=== PATIENT | female | born 1955 | race Caucasian/White ===

== ENCOUNTER 2017-02-05 15:23 | Emergency (ER) | payer BC ==
--- NOTE | 2017-02-05 16:54 | UC ---
Lower Extremity/Ankle HPI - HPI Summary HPI Summary: Pt presnets with large hematoma on dorasal aspect of right foot. pt reports running through airport and carry on luggage fell on top of right foot. Pt then sat for flight home from [facility] to [facility] with right foot dependent. Now c/o large hematoma to dorsal aspect of right foot. able bear weight. - History of Current Complaint Chief Complaint: UCLowerExtremity Stated Complaint: RIGHT FOOT INJURY Time Seen by Provider: 02/05/17 16:33 Hx Obtained From: Patient Hx Last Menstrual Period: n/a ?: No Onset/Duration: Gradual Onset, Lasting Hours Severity Initially: Mild Severity Currently: Moderate Aggravating Factor(s): Standing, Ambulation Alleviating Factor(s): Rest, Elevation Able to Bear Weight: Yes - Risk Factors Gout Risk Factors: Age Over 40 DVT Risk Factors: Recent Travel Septic Arthritis Risk Factor: Negative - Allergies/Home Medications Allergies/Adverse Reactions: Allergies Allergy/AdvReac Type Severity Reaction Status Date / Time Penicillins Allergy Rash Verified 02/05/17 16:33 grass Allergy Runny Nose Uncoded 02/05/17 16:33 Home Medications: Home Medications Bone Strengthening Med 1 tab PO MONTHLY 02/05/17 [History] Calcium Carbonate-Cholecalcife [Calcium 500 +D] 1,500 mg PO DAILY 02/05/17 [ History Confirmed 02/05/17] Multivitamins/Minerals TAB* [Theragran/minerals TAB*] 1 tab PO DAILY 02/05/17 [ History Confirmed 02/05/17] PMH/Surg Hx/FS Hx/Imm Hx Previously Healthy: Yes - Surgical History Surgical History: None - Family History Known Family History: Positive: Cardiac Disease - Social History Lives: With Family Alcohol Use: Occasionally Substance Use Type: None Smoking Status (MU): Never Smoked Tobacco Review of Systems Constitutional: Negative Skin: Bruising - large right foot, Eyes: Negative ENT: Negative Respiratory: Negative Cardiovascular: Negative Gastrointestinal: Negative Genitourinary: Negative Motor: Negative Neurovascular: Negative Musculoskeletal: Edema - right foot, Myalgia Neurological: Negative Psychological: Negative All Other Systems Reviewed And Are Negative: Yes Physical Exam Triage Information Reviewed: Yes Appearance: Well-Appearing Vital Signs: Initial Vital Signs Temp 100.1 F 02/05/17 16:25 Pulse 78 02/05/17 16:25 Resp 20 02/05/17 16:25 BP 139/94 02/05/17 16:25 Eye Exam: Normal Neck exam: Normal Respiratory Exam: Normal Musculoskeletal Exam: Other Musculoskeletal: Positive: Edema @ - right dorsal aspect Neurological Exam: Normal Psychological Exam: Normal Skin Exam: Other - large hematoma right dorsal aspect Lower Extremity Course/Dx - Differential Dx/Diagnosis Differential Diagnosis/HQI/PQRI: Contusion, Fracture (Closed), Other - hematoma Provider Diagnoses: hematoma right foot Discharge - Discharge Plan Condition: Stable Disposition: HOME Patient Education Materials: Foot Contusion (ED), Hematoma (ED) Referrals: Vannessa Canales MD [Primary Care Provider] - If Needed
--- NOTE | 2017-02-05 17:23 | RAD ---
Indication: Right foot injury after trauma. 3 views of the right foot demonstrates no fracture. Degenerative changes of the first metatarsal phalangeal joint is noted. No other bone or joint abnormality is noted. IMPRESSION: No fracture of the right foot is noted.
== END 2017-02-05 17:36 | disposition home or self-care (01) ==
LOC: UCCORT 15:23
DX: S90.31XA Contusion of right foot, initial encounter (principal); W20.8XXA Other cause of strike by thrown, projected or falling object, initial encounter; Y93.89 Activity, other specified; Y92.520 Airport as the place of occurrence of the external cause; Z88.0 Allergy status to penicillin
CPT/HCPCS: 99203; G0463